=== PATIENT | male | born 1965 | race Hispanic/Latino ===

== ENCOUNTER 2018-05-24 09:20 | Emergency (ER) | payer MEDICAID ==
[2018-05-24] MEDS ORDERED: BUPIVACAINE/PF 0.5% 30ML VIAL ONE (09:32)
[2018-05-24] MEDS ORDERED: LIDOCAINE HCL-MPF 2% 5ML VIAL ONE (09:32)
[2018-05-24] MEDS ORDERED: TETANUS/DIPHTHERIA TOXOID [ADULT] 0.5 ML VIAL IM ONE (09:41)
[2018-05-24] MEDS ORDERED: CEFAZOLIN SODIUM 1 GM VIAL ONE (14:21)
== END 2018-05-24 17:15 | disposition short-term general hospital (02) ==
LOC: EDH 09:20
DX: S61.333A Puncture wound without foreign body of left middle finger with damage to nail, initial encounter (principal); E78.5 Hyperlipidemia, unspecified; W31.89XA Contact with other specified machinery, initial encounter; Y93.89 Activity, other specified; Y92.89 Other specified places as the place of occurrence of the external cause; Y99.8 Other external cause status
CPT/HCPCS: 64450; 73140; 90471; 90714; 96365; 96366; 99285; J0690; J3490 ×2